=== PATIENT | female | born 1975 | race African-American/Black ===

== ENCOUNTER 2016-11-09 08:26 | Emergency (ER) | payer BC ==
[~2016-11-09] VITALS: Ht 175.3 cm; Wt 115.4 kg
[~2016-11-09 08:26] MED LIST: AMOXICILLIN 50500 MG PO; FLEXERIL 1010 MG/TAB PO; FLEXERIL10 MG PO; LORTAB 5/500 501 TAB PO; MIRENA52 MG IU; MUCINEX 60600 MG/TA1 PO; MUCINEX 60600 MG/TAB PO; NAPROSYN500 MG PO; NO HOME MEDICATIONS; PERCOCET 5/321 UDTAB PO; TESSALON PERLE200 MG PO; THERA FLU; [UNRECOGNIZED DRUG - OTHER]
[2016-11-09 08:33] VITALS: TEMP 98.6
[2016-11-09 09:33] LABS: BASO % 0.6 % (0.0-2.0); EOS % 0.6 % (0-4.0); GRAN # 1.8 (1.4-6.5); GRAN % 50.9 % (42.2-75.2); HEMATOCRIT 40.4 % (37.0-47.0); HEMOGLOBIN 13.8 g/dl (12.5-16.0); LYMPH # 1.4 (1.2-3.4); LYMPH % 39.2 % (20.0-51.0); MEAN CELL VOLUME 85 fl (80.0-100.0); MEAN CORPUSCULAR HEMOGLOBIN 29 pg (27.0-31.0); MEAN CORPUSCULAR HGB CONC 34 g/dl (33.0-37.0); MEAN PLATELET VOLUME 13.9 fl (7.4-10.4); MONO # 0.3 (0.1-0.6); MONO % 8.4 % (1.7-9.3); PLATELET COUNT 126 K/mm3 (130-400); RED BLOOD COUNT 4.76 M/mm3 (4.10-5.30); REDCELL DISTRIBUTION WIDTH-CV 12.6 % (11.5-14.5); WHITE BLOOD COUNT 3.6 K/mm3 (4.8-10.8)
[2016-11-09 09:48] LABS: ADJUSTED CALCIUM 8.8 mg/dL (8.4-10.2); ALBUMIN 4.1 gm/dL (3.5-5.0); BILIRUBIN,TOTAL 0.5 mg/dL (0.0-1.0); CALCIUM 8.9 mg/dL (8.4-10.2); CREATININE, serum 0.98 mg/dL (0.52-1.25); POTASSIUM 3.9 mmol/L (3.4-5.0); TOTAL PROTEIN 7.4 gm/dL (6.4-8.2)
[2016-11-09] MEDS ORDERED: ZOFRAN 4MG T4 MG/TAB PO (11:10)
[2016-11-09 11:31] VITALS: BP 138/93; PULSE 63
== END 2016-11-09 11:33 | disposition home or self-care (01) ==
LOC: COL.ER 08:26
PROVIDERS: Nurse Practitioner
DX: R51 Headache (principal); R11.0 Nausea
CPT/HCPCS: J1200; J1885; J2405; J2765; J7030

== ENCOUNTER 2016-12-17 17:16 | Emergency (ER) | payer BC ==
[~2016-12-17] VITALS: Ht 172.7 cm; Wt 109.1 kg
[~2016-12-17 17:16] MED LIST changes: +ZOFRAN 4MG T4 MG/TAB PO
[2016-12-17 17:19] VITALS: BP 170/104; TEMP 99
[2016-12-17] MEDS ORDERED: MIRENA52 MG IY (17:23)
[2016-12-17] MEDS ORDERED: AMOXICILLIN 8751 TAB PO (18:00)
[2016-12-17 18:11] VITALS: PULSE 77
== END 2016-12-17 18:12 | disposition home or self-care (01) ==
LOC: COL.ER 17:16
DX: H00.014 Hordeolum externum left upper eyelid (principal)

== ENCOUNTER 2017-02-25 08:04 | Emergency (ER) | payer BC ==
[~2017-02-25] VITALS: Ht 175.3 cm; Wt 109.1 kg
[~2017-02-25 08:04] MED LIST changes: +AMOXICILLIN 8751 TAB PO; +MIRENA52 MG IY
[2017-02-25 08:06] VITALS: BP 161/96; TEMP 98.1
[2017-02-25] MEDS ORDERED: AMOXICILLIN 8751 TAB PO (08:35)
[2017-02-25 08:52] VITALS: PULSE 66
== END 2017-02-25 08:55 | disposition home or self-care (01) ==
LOC: COL.ER 08:04
DX: L03.012 Cellulitis of left finger (principal); F17.210 Nicotine dependence, cigarettes, uncomplicated; Z98.51 Tubal ligation status

== ENCOUNTER 2017-04-04 07:55 | Emergency (ER) | payer BC ==
[~2017-04-04] VITALS: Ht 175.3 cm; Wt 95.5 kg
[2017-04-04 08:00] VITALS: BP 172/107; TEMP 98.5
[2017-04-04 08:38] LABS: BASO % 0.6 % (0.0-2.0); EOS % 0.6 % (0-4.0); GRAN # 1.7 (1.4-6.5); GRAN % 48.4 % (42.2-75.2); HEMOGLOBIN 13.4 g/dl (12.5-16.0); LYMPH # 1.3 (1.2-3.4); LYMPH % 37.7 % (20.0-51.0); MEAN CELL VOLUME 86 fl (80.0-100.0); MEAN CORPUSCULAR HEMOGLOBIN 29 pg (27.0-31.0); MEAN CORPUSCULAR HGB CONC 34 g/dl (33.0-37.0); MEAN PLATELET VOLUME 13.5 fl (7.4-10.4); MONO # 0.4 (0.1-0.6); MONO % 12.4 % (1.7-9.3); PLATELET COUNT 124 K/mm3 (130-400); RED BLOOD COUNT 4.63 M/mm3 (4.10-5.30); WHITE BLOOD COUNT 3.6 K/mm3 (4.8-10.8)
[2017-04-04 09:04] LABS: ADJUSTED CALCIUM 8.9 mg/dL (8.4-10.2); ALBUMIN 4.1 gm/dL (3.5-5.0); BILIRUBIN,TOTAL 0.6 mg/dL (0.0-1.0); CREATININE, serum 1.03 mg/dL (0.52-1.25); POTASSIUM 3.9 mmol/L (3.4-5.0); TOTAL PROTEIN 7.4 gm/dL (6.4-8.2)
[2017-04-04] MEDS ORDERED: ZOFRAN ODT4 MG PO (09:31)
[2017-04-04 09:41] LABS: COLLECTION METHOD CLEAN CATCH
[2017-04-04 09:53] LABS: MUCOUS Present /lpf; PH 6 (5-8); URINE APPEARANCE Hazy; URINE BACTERIA Rare /hpf; URINE BILIRUBIN Negative (NEGATIVE); URINE BLOOD 1+ (NEGATIVE); URINE COLOR Yellow; URINE GLUCOSE Negative (NEGATIVE); URINE KETONE Negative (NEGATIVE); URINE LEUKOCYTE ESTERASE Negative (NEGATIVE); URINE PROTEIN(semi-quant) Negative (NEGATIVE); URINE RBC 0-2 /hpf; URINE UROBILINOGEN Negative (NEGATIVE); URINE WBC 0-2 /hpf
[2017-04-04 10:15] VITALS: PULSE 64
== END 2017-04-04 10:19 | disposition home or self-care (01) ==
LOC: COL.ER 07:55
PROVIDERS: Nurse Practitioner
DX: I10 Essential (primary) hypertension (principal); D72.819 Decreased white blood cell count, unspecified; D69.6 Thrombocytopenia, unspecified; R10.84 Generalized abdominal pain; R11.2 Nausea with vomiting, unspecified; R19.7 Diarrhea, unspecified; Z98.51 Tubal ligation status
CPT/HCPCS: J2405; J7030

== ENCOUNTER 2017-05-27 07:44 | Emergency (ER) | payer BC ==
[~2017-05-27] VITALS: Ht 175.3 cm; Wt 109.1 kg
[~2017-05-27 07:44] MED LIST changes: +ZOFRAN ODT4 MG PO
[2017-05-27 07:54] VITALS: BP 139/87
[2017-05-27] MEDS ORDERED: AMOXICILLIN 8751 TAB PO (08:18)
[2017-05-27 08:38] VITALS: PULSE 73; TEMP 97.7
== END 2017-05-27 08:35 | disposition home or self-care (01) ==
LOC: COL.ER 07:44
DX: H00.013 Hordeolum externum right eye, unspecified eyelid (principal); F17.210 Nicotine dependence, cigarettes, uncomplicated; Z98.51 Tubal ligation status

== ENCOUNTER 2017-11-24 19:34 | Emergency (ER) | payer OTHER, BC ==
[~2017-11-24] VITALS: Ht 175.3 cm; Wt 109.1 kg
[2017-11-24 19:35] VITALS: TEMP 99.4
[2017-11-24] MEDS ORDERED: MIRENA52 MG IY (19:59)
[2017-11-24 21:30] VITALS: PULSE 70
[2017-11-24] MEDS ORDERED: FLEXERIL 1010 MG/TAB PO (21:48)
[2017-11-24] MEDS ORDERED: NORCO 325 MG-51 TAB PO (21:48)
[2017-11-24 22:00] VITALS: BP 137/95
== END 2017-11-24 22:21 | disposition home or self-care (01) ==
LOC: COL.ER 19:34
DX: S16.1XXA Strain of muscle, fascia and tendon at neck level, initial encounter (principal); S39.012A Strain of muscle, fascia and tendon of lower back, initial encounter; F17.210 Nicotine dependence, cigarettes, uncomplicated; V49.40XA Driver injured in collision with unspecified motor vehicles in traffic accident, initial encounter
CPT/HCPCS: J3010

== ENCOUNTER 2019-06-24 11:57 | Emergency (ER) | payer SELFPAY ==
[~2019-06-24] VITALS: Ht 175.3 cm; Wt 95.5 kg
[~2019-06-24 11:57] MED LIST changes: +NORCO 325 MG-51 TAB PO
[2019-06-24 12:06] VITALS: BP 160/96; TEMP 97.9
[2019-06-24 13:22] VITALS: PULSE 72
== END 2019-06-24 13:22 | disposition home or self-care (01) ==
LOC: COL.ER 11:57
DX: J10.1 Influenza due to other identified influenza virus with other respiratory manifestations (principal)

== ENCOUNTER 2022-02-27 17:26 | Emergency (ER) | payer SELFPAY ==
[~2022-02-27] VITALS: Ht 175.3 cm; Wt 100.0 kg
[2022-02-27 17:44] VITALS: TEMP 97.9
[2022-02-27 21:01] LABS: HEMATOCRIT 38.8 % (37.0-47.0); HEMOGLOBIN 13.2 g/dl (12.5-16.0); MEAN CELL VOLUME 86 fl (80.0-100.0); MEAN CORPUSCULAR HEMOGLOBIN 29 pg (27-31); MEAN CORPUSCULAR HGB CONC 34 g/dl (33.0-37.0); MEAN PLATELET VOLUME 13.8 fl (7.4-10.4); PLATELET COUNT 138 K/mm3 (130-400); RED BLOOD COUNT 4.52 M/mm3 (4.10-5.30); REDCELL DISTRIBUTION WIDTH-CV 12.4 % (11.5-14.5)
[2022-02-27 21:14] LABS: ANION GAP 9 mmol/L (7-16); BLOOD UREA NITROGEN 8 mg/dL (7-19); CARBON DIOXIDE 24 mmol/L (22-29); CHLORIDE 104 mmol/L (98-107); CREATININE, serum 0.86 mg/dL (0.57-1.11); GLUCOSE 88 mg/dL (70-99); POTASSIUM 3.8 mmol/L (3.5-4.5); SODIUM 137 mmol/L (136-145)
[2022-02-27 21:24] LABS: TROPONIN-I < 0.010 ng/mL (0.00-0.033)
[2022-02-27] MEDS ORDERED: NAPROSYN500 MG PO (22:42)
[2022-02-27] MEDS ORDERED: REGLAN 10MG10 MG/TAB PO (22:42)
[2022-02-28 00:46] VITALS: BP 144/109; PULSE 64
== END 2022-02-28 01:01 | disposition home or self-care (01) ==
LOC: COL.ER 17:26
PROVIDERS: Emergency Medicine
DX: H40.052 Ocular hypertension, left eye (principal); R07.89 Other chest pain; Z87.891 Personal history of nicotine dependence
CPT/HCPCS: J1885; J2765

== ENCOUNTER → 2023-11-13 | Outpatient (CLI) | payer BC ==
[~2023-11-13] MED LIST changes: +REGLAN 10MG10 MG/TAB PO
== END ==
LOC: MC.RAD 14:39
DX: Z12.31 Encounter for screening mammogram for malignant neoplasm of breast (principal)